=== PATIENT | female | born 1955 | race Caucasian/White ===

== ENCOUNTER 2019-06-10 17:11 | Emergency (ER) | payer OTHER ==
[2019-06-10 17:23] VITALS: BP 103/57
--- NOTE | 2019-06-10 17:54 | EKG REPORT ---
SEVERITY:- NORMAL ECG - SINUS RHYTHM : Confirmed by: Shivam Bain MD 10-Jun-2019 17:54:11
[2019-06-10] MEDS ORDERED: ASPIRIN 81 MG TABLET, CHEWABLE PO ONE (18:07)
[2019-06-10] MEDS ORDERED: FENTANYL CITRATE INJ/PF 100 MCG/2 ML AMPUL IV ONE (18:11)
--- NOTE | 2019-06-10 18:14 | ER Document Report ---
ED Medical Screen (RME) - General Chief Complaint: Chest Pain Stated Complaint: CHEST PAIN Time Seen by Provider: 06/10/19 17:57 Primary Care Provider: GLENNA SNYDER [Primary Care Provider] - Follow up as needed Notes: Patient is a 64-year-old female with a past medical history of metastatic breast cancer on the right side who presents to the emergency department with right- sided chest pain. She states that it starts in the mid right chest and migrates up to her neck and around her breast to her right upper abdomen. Her symptoms started around 1300 this afternoon. She states that she also feels short of breath. She also has hypertension, anxiety, and hyperlipidemia. Exam: Tenderness upon palpation to right mid chest. Clear breath sounds bilaterally to auscultation. I have greeted and performed a rapid initial assessment of this patient. A comprehensive ED assessment and evaluation of the patient, analysis of test results and completion of medical decision making process will be conducted by an additional ED providers. TRAVEL OUTSIDE OF THE [place] IN LAST 30 DAYS: No Past Medical History - Social History Chew tobacco use (# tins/day): No Frequency of alcohol use: Occasional Drug Abuse: None - Past Medical History Cardiac Medical History: Reports: Hx Hypertension Renal/ Medical History: Denies: Hx Peritoneal Dialysis Physical Exam - Vital signs Vitals: Temp Pulse Resp BP Pulse Ox 97.8 F 80 22 H 103/57 L 100 06/10/19 17:22 06/10/19 17:22 06/10/19 17:22 06/10/19 17:22 06/10/19 17:22 Course - Vital Signs Vital signs: Temp Pulse Resp BP Pulse Ox 97.8 F 80 22 H 103/57 L 100 06/10/19 17:22 06/10/19 17:22 06/10/19 17:22 06/10/19 17:22 06/10/19 17:22 Doctor's Discharge - Discharge Referrals: GLENNA SNYDER [Primary Care Provider] - Follow up as needed
[2019-06-10 18:55] LABS: ABSOLUTE LYMPHOCYTES (AUTO) 0.8 10^3/uL (0.5-4.7); ABSOLUTE MONOCYTES (AUTO) 0.1 10^3/uL (0.1-1.4); ABSOLUTE NEUT (AUTO) 2.5 10^3/uL (1.7-8.2); BASOPHILS % (AUTO) 0.9 % (0-2); EOSINOPHILS % (AUTO) 0.4 % (0-6); HEMATOCRIT 23.7 % (36.0-47.0); LYMPHOCYTES % (AUTO) 22.8 % (13-45); MEAN CORPUSCULAR HEMOGLOBIN 32.9 pg (27.0-33.4); MEAN CORPUSCULAR HGB CONC 33.8 g/dL (32.0-36.0); MEAN CORPUSCULAR VOLUME 98 fl (80-97); MONOCYTES % (AUTO) 3.8 % (3-13); PLATELET COUNT 159 10^3/uL (150-450); RED BLOOD COUNT 2.43 10^6/uL (3.72-5.28); RED CELL DISTRIBUTION WIDTH 19.1 % (11.5-14.0); SEGMENTED NEUTROPHILS % (AUTO) 72.1 % (42-78); TOTAL CELLS COUNTED % (AUTO) 100 %; WHITE BLOOD COUNT 3.4 10^3/uL (4.0-10.5)
[2019-06-10 19:15] LABS: ALBUMIN 4.1 g/dL (3.5-5.0); ALKALINE PHOSPHATASE 288 U/L (38-126); ANION GAP 10 (5-19); ASPARTATE AMINO TRANSFERASE 55 U/L (14-36); BILIRUBIN,DIRECT 0.2 mg/dL (0.0-0.4); BILIRUBIN,TOTAL 0.5 mg/dL (0.2-1.3); BLOOD UREA NITROGEN 13 mg/dL (7-20); CALCIUM 8.4 mg/dL (8.4-10.2); CARBON DIOXIDE 24 mmol/L (22-30); CHLORIDE 105 mmol/L (98-107); CREATINE KINASE 127 U/L (30-135); GLUCOSE 120 mg/dL (75-110); POTASSIUM 4.6 mmol/L (3.6-5.0); TOTAL PROTEIN 6.9 g/dL (6.3-8.2)
--- NOTE | 2019-06-10 19:21 | RADIOLOGY REPORT (SQ) ---
EXAM DESCRIPTION: U/S ABDOMEN LIMITED W/O DOP COMPLETED DATE/TIME: 06/10/2019 6:54 pm REASON FOR STUDY: RUQ pain COMPARISON: None. TECHNIQUE: Dynamic and static grayscale images acquired of the abdomen and recorded on PACS. Additio nal selected color Doppler and spectral images recorded. Note: Exam does not meet criteria for a complete doppler/duplex scan LIMITATIONS: Study limited due to acoustical interference from fat or from air in the bowel. FINDINGS: PANCREAS: Poorly seen secondary to acoustical interference from fat or from air in the bow el. No visualized masses. Duct normal caliber as seen. LIVER: Echotexture is coarse with increased echogenicity consistent with fatty infiltration. LIVER VASCULATURE: Normal directional flow of the main portal vein and hepatic veins. GALLBLADDER: Poorly visualized. No stones. Normal wall thickness. No pericholecystic fluid. ULTRASOUND-DETECTED WALTER'S SIGN: Negative. INTRAHEPATIC DUCTS AND COMMON DUCT: CBD and intrahepatic ducts normal caliber. No filling defects. INFERIOR VENA CAVA: Normal flow. AORTA: No aneurysm. RIGHT KIDNEY: Normal size. Normal echogenicity. No solid or suspicious masses. No hydronephrosis. No calcifications. PERITONEAL AND PLEURAL SPACES: No ascites or effusions. OTHER: No other significant finding. IMPRESSION: FATTY INFILTRATION OF THE LIVER. NO OTHER SIGNIFICANT FINDING IN THE VISUALIZED ABDOMEN. TECHNICAL DOCUMENTATION: JOB ID: [id number] [employer]- All Rights Reserved Reading location - IP/workstation name: [email or web address]
[2019-06-10 19:30] LABS: CREATINE KINASE MB 0.38 ng/mL (<4.55)
[2019-06-10 19:33] LABS: TROPONIN I < 0.012 ng/mL
--- NOTE | 2019-06-10 20:05 | RADIOLOGY REPORT (SQ) ---
EXAM DESCRIPTION: XR CHEST 1 VIEW COMPLETED DATE/TME: 06/10/2019 18:08 CLINICAL HISTORY: chest pain COMPARISON: None FINDINGS: Cardiac silhouette is within normal limits. Patient is rotated. Surgical clips project over the right lateral chest/axillary level. There is no focal parenchymal or pleural disease. There is no acute osseous process visualized. IMPRESSION: No evidence of acute cardiopulmonary disease.
== END 2019-06-10 21:02 | disposition left against medical advice (07) ==
LOC: ER 17:11
DX: R07.9 Chest pain, unspecified (principal); M54.2 Cervicalgia; R10.11 Right upper quadrant pain; R06.02 Shortness of breath; I10 Essential (primary) hypertension; Z85.3 Personal history of malignant neoplasm of breast; Z53.20 Procedure and treatment not carried out because of patient's decision for unspecified reasons
CPT/HCPCS: 93005; 36415; 82553; 82550; 83690; 83735; 85025; 80053; 84484; 71045; 76705; 93010; J3010; 96374; 99281